=== PATIENT | male | born 2000 | race Two or more races ===

== ENCOUNTER 2025-04-05 21:28 | Emergency (ER) | payer OTHER ==
[~2025-04-05] VITALS: Ht 180.3 cm; Wt 85.5 kg
--- NOTE | 2025-04-05 23:24 | DVH ---
CHEST RADIOGRAPH INDICATION: SOB TECHNIQUE: Single frontal view of the chest was obtained COMPARISON: None FINDINGS: Lines and Tubes: None Lungs: Clear. Pleura: No pleural effusion or pneumothorax. Cardiomediastinal contours: Unremarkable. IMPRESSION: No abnormality demonstrated.
[2025-04-05] MEDS: ALBUTEROL SULF 2.5 MG/0.5ML(0.5%) NEB SOLN NEB ONE ×2 (23:35)
[2025-04-05] MEDS: IPRATROPIUM BROM 0.5 MG/2.5ML INH SOL NEB ONE (23:35)
--- NOTE | 2025-04-05 23:57 | ED.PDOC ---
History of Present Illness HPI Comments 24 y/o M presents with c/c of shortness of breath and wheezing. History for asthma. Patient reports on asthma exacerbation 1x hour prior to ED arrival. No relief with at-home albuterol and emergency breathing treatment MID's. Denial of any fever, cough, congestion, or further acute symptoms. Chief Complaint: Asthma Time Seen by MD: 21:30 Reviewed Notes: Nurses Notes, Medications, Allergies Allergies: Coded Allergies: NO KNOWN ALLERGIES (Unverified , 04/05/25) Home Meds Active Scripts Montelukast Sodium (MONTELUKAST SODIUM) 10 Mg Tab, 1 TAB PO DAILY, #90 TAB 3 Refills Prov:ELI MASSEY MD 04/06/25 Albuterol Sulfate (Albuterol Sulfate Hfa) 108 Mcg/Act Aer, 108 MCG IN Q6HP PRN, #1 AER Prov:EIL MASSEY MD 04/06/25 Albuterol Sulfate (Albuterol Sulfate) 0.083 % Neb, 1 VIAL NEB Q4HPRN PRN, #50 VIAL Prov:ELI MASSEY MD 04/06/25 Information Source: Patient Mode of Arrival: Ambulatory Severity: Moderate Timing: Minutes Duration: Since onset Prehospital treatment: Breathing Tx Past Medical History PAST MEDICAL HISTORY: Asthma Surgical History: Denies all surgeries Social History Smoker: Non-Smoker Alcohol: Denies ETOH Use Drugs: Denies Drug Use Lives In: Home All Other Systems: Reviewed and Negative (As per HPI) Physical Exam General Appearance: Mild Distress, Normal HEENT: Normal ENT Inspection, Pharynx Normal, TMs Normal Neck: Full Range of Motion, Non-Tender, Normal, Normal Inspection Respiratory: Chest Non-Tender, Lungs Clear, No Accessory Muscle Use, No Respiratory Distress, Normal Breath Sounds Cardiovascular: No Edema, No JVD, No Murmur, No Gallop, Normal Peripheral Pulses, Regular Rate/Rhythm Breast Exam: Deferred Gastrointestinal: No Organomegaly, Non Tender, No Pulsatile Mass, Normal Bowel Sounds, Soft Genitalia: Deferred Pelvic: Deferred Rectal: Deferred Extremities: No calf tenderness, Normal capillary refill, Normal inspection, Normal range of motion, Non-tender, No pedal edema Musculoskeletal : Apperance: Normal Neurologic: Alert, parts counterman II-XII nml as Tested, No Motor Deficits, Normal Affect, Normal Mood, No Sensory Deficits Cerebellar Function: Normal Reflexes: Normal Skin: Dry, Normal Color, Warm Lymphatic: No Adenopathy Was a procedure done? Was a procedure done?: No Differential Dx Considerations may include: acute asthma exacerbation, URI, PNA, viral syndrome, among others X-Ray, Labs, Meds, VS Vital Signs Date Time Temp Pulse Resp B/P (MAP) Pulse Ox O2 Delivery O2 Flow Rate FiO2 04/06/25 02:00 98.7 90 16 124/73 (90) 96 98.7 04/06/25 00:21 16 98 Room Air* 0 21 04/06/25 00:20 98.1 101 16 113/78 (90) 98 98.1 04/05/25 21:28 97.2 110 19 128/90 97 97.2 04/05/25 21:28 19 97 Room Air* 0 21 Current Medications Medications (Trade) Dose Ordered Sig/Rachel Route Start Time Stop Time Status Last Admin Albuterol (Ventolin Medneb) 2.5 mg ONCE ONCE NEB 04/05/25 21:45 04/05/25 21:46 DC 04/05/25 23:35 Ipratropium [place] (Atrovent Medneb) 0.5 mg ONCE ONCE NEB 04/05/25 21:45 04/05/25 21:46 DC 04/05/25 23:35 Albuterol (Ventolin Medneb) 5 mg ONCE ONCE NEB 04/05/25 23:00 04/05/25 23:01 DC 04/05/25 23:35 Prednisone 40 mg ONCE ONCE PO 04/05/25 23:00 04/05/25 23:01 DC 04/06/25 00:17 Magnesium Oxide (Mag-Ox Tablet) 800 mg ONCE ONCE PO 04/05/25 23:00 04/05/25 23:01 DC 04/06/25 00:17 [place] [id number] Ph: [phone] DIAGNOSTIC IMAGING Diagnostic Imaging Report : [id number] Signed PATIENT: DWIGHT MCMILLAN ACCT: [id number] UNIT: [id number] : 2000 LOC: ER ROOM / BED: / AGE / SEX: 24 / M ADM STATUS: REG ER SERVICE [id number] ORDERING PHYSICIAN: ELI MASSEY MD PROCEDURE(s): CXR1 - CHEST XRAY 1 VIEW REASON: SOB ORDER NUMBER(s): [id number], ACCESSION NUMBER(s): [id number] CHEST RADIOGRAPH INDICATION: SOB TECHNIQUE: Single frontal view of the chest was obtained COMPARISON: None FINDINGS: Lines and Tubes: None Lungs: Clear. Pleura: No pleural effusion or pneumothorax. Cardiomediastinal contours: Unremarkable. IMPRESSION: No abnormality demonstrated. ATED BY: CHRIS COTE MD DICTATED DATE/TIME: 04/05/252320 SIGNED BY: CHRIS COTE MD SIGNED DATE/TIME: 04/05/252320 CC: Time of 1ST Reevaluation: 22:30 Reevaluation 1ST: Unchanged Patient Education/Counseling: Diagnosis, Treatment, Need For Follow Up Family Education/Counseling: No Family Present SEPSIS Sepsis Screen Date sepsis recognized/suspect: Apr 05, 2025 Time Sepsis recognized/suspect: 2127 Recent Procedure: No On Antibiotic Therapy: No Respiratory Rate >20: No Heart Rate >90: Yes Temp<36 C (96.8 F) or >38.3 C: No SBP <90 or MAP <65 mmHG: No New Acute Mental Status Change: No Is the patient on CPAP, BIPAP,: No Physician Orders Electrocardigram (04/05/25 22:49) Chest Xray 1 View (04/05/25 22:49) Vital Signs Date Time Temp Pulse Resp B/P (MAP) Pulse Ox O2 Delivery O2 Flow Rate FiO2 04/06/25 02:00 98.7 90 16 124/73 (90) 96 98.7 04/06/25 00:21 16 98 Room Air* 0 21 04/06/25 00:20 98.1 101 16 113/78 (90) 98 98.1 04/05/25 21:28 97.2 110 19 128/90 97 97.2 04/05/25 21:28 19 97 Room Air* 0 21 Medications Medications Dose Ordered Sig/Rachel Route Start Time Stop Time Status Last Admin Dose Admin Albuterol 2.5 mg ONCE ONCE NEB 04/05/25 21:45 04/05/25 21:46 DC 04/05/25 23:35 Albuterol 5 mg ONCE ONCE NEB 04/05/25 23:00 04/05/25 23:01 DC 04/05/25 23:35 Ipratropium [place] 0.5 mg ONCE ONCE NEB 04/05/25 21:45 04/05/25 21:46 DC 04/05/25 23:35 Magnesium Oxide 800 mg ONCE ONCE PO 04/05/25 23:00 04/05/25 23:01 DC 04/06/25 00:17 Prednisone 40 mg ONCE ONCE PO 04/05/25 23:00 04/05/25 23:01 DC 04/06/25 00:17 Departure 1 Departure Time of Disposition: 23:30 Impression: Primary Impression: Acute asthma Disposition: 01 HOME / SELF CARE / HOMELESS Condition: Stable e-Prescriptions Montelukast Sodium (MONTELUKAST SODIUM) 10 Mg Tab 1 TAB PO DAILY, #90 TAB 3 Refills Prov: ELI MASSEY MD 04/06/25 Albuterol Sulfate (Albuterol Sulfate Hfa) 108 Mcg/Act Aer 108 MCG IN Q6HP PRN, #1 AER Prov: ELI MASSEY MD 04/06/25 Albuterol Sulfate (Albuterol Sulfate) 0.083 % Neb 1 VIAL NEB Q4HPRN PRN, #50 VIAL Prov: ELI MASSEY MD 04/06/25 Discharged With: Self Critical Care Note Critical Care Time?: No Stability Stability form required: No Heart Score Heart Score: Heart Score Response (Comments) Value History N/A 0 EKG N/A 0 Age N/A 0 Risk Factors N/A 0 Troponin N/A 0 Total 0 I personally scribed for ELI MASSEY MD ([email or web address]) on 04/05/25 at 23:57. Electronically submitted by Miguel Ángel Grimaldo ([email or web address]). ELI MASSEY MD Apr 05, 2025 23:57
[2025-04-06] MEDS: MAGNESIUM OXIDE 400 MG TAB PO ONE (00:17)
[2025-04-06] MEDS: predniSONE 20 MG TAB PO ONE (00:17)
[2025-04-06 00:21] VITALS: RESP 16; O2SAT 98
[2025-04-06] MEDS ORDERED: ALBU0.084 NEB (01:21)
[2025-04-06] MEDS ORDERED: ALBU108A5 IN (01:21)
[2025-04-06] MEDS ORDERED: MONT-8 PO (01:21)
[2025-04-06 02:00] VITALS: BP 124/73; PULSE 90; RESP 16; TEMP 98.7; O2SAT 96
== END 2025-04-06 02:02 | disposition home or self-care (01) ==
LOC: ER 21:28
DX: J45.909 Unspecified asthma, uncomplicated (principal)
CPT/HCPCS: 71045; 94640; 99283; J7512